=== PATIENT | female | born 1980 | race Asian ===

== ENCOUNTER 2018-12-26 20:18 | Emergency (ER) | payer SELFPAY ==
[~2018-12-26] VITALS: Ht 165.1 cm; Wt 56.7 kg
[2018-12-26 20:30] VITALS: BP_SYST 100
[2018-12-26] MEDS ORDERED: PROPOFOL 200MG/ 20ML VIAL (DIPRIVAN) IV ONE (21:30)
[2018-12-27 00:20] VITALS: BP_SYST 106
== END 2018-12-27 00:20 | disposition home or self-care (01) ==
LOC: SED 20:18
DX: S63.005A Unspecified dislocation of left wrist and hand, initial encounter (principal); V29.9XXA Motorcycle rider (driver) (passenger) injured in unspecified traffic accident, initial encounter; Y93.89 Activity, other specified; Y92.410 Unspecified street and highway as the place of occurrence of the external cause; Y99.8 Other external cause status
CPT/HCPCS: 25605; 73090; 73100; 81025; 99285; J2704; J7030; 99284